=== PATIENT | female | born 1995 | race Hispanic/Latino ===

== ENCOUNTER 2017-07-01 01:53 | Emergency (ER) | payer OTHER ==
[~2017-07-01] VITALS: Ht 157.5 cm; Wt 59.0 kg
[2017-07-01] MEDS ORDERED: ONDANSETRON HCL INJ 2 MG/ML VIAL IV STA (02:14)
[2017-07-01] MEDS ORDERED: SODIUM CHLORIDE 0.9% 1000ML 1,000 ML IV STA (02:14)
[2017-07-01] MEDS ORDERED: ALBUTEROL/IPRATROPIUM 3 ML NEB NEB ONE (02:30)
[2017-07-01 03:04] VITALS: BP 116/70
== END 2017-07-01 03:00 | disposition home or self-care (01) ==
LOC: FSED 01:53
DX: J20.9 Acute bronchitis, unspecified (principal); R50.81 Fever presenting with conditions classified elsewhere
CPT/HCPCS: 80053; 85025; 99283; J2405; J7030